=== PATIENT | female | born 1945 | race Caucasian/White ===

== ENCOUNTER → 2016-07-07 | Outpatient (CLI) | payer MEDICARE ==
[2016-07-07 08:51] LABS: ALT 35 U/L (9-52); AST 60 U/L (14-36); Alkaline Phosphatase 286 U/L (38-126); Anion Gap 7 mmol/L; Blood Urea Nitrogen 27 mg/dL (7-17); Calcium 8.6 mg/dL (8.4-10.2); Carbon Dioxide 28 mmol/L (22-30); Chloride 105 mmol/L (98-107); Non-African American GFR(MDRD) 50 (>60 ml/min/1.73 sqM); Sodium 140 mmol/L (137-145); Total Bilirubin 0.4 mg/dL (0.2-1.3); Total Protein 6.5 g/dL (6.3-8.2)
[2016-07-07 09:02] LABS: Glucose 42 mg/dL (74-99)
--- NOTE | 2016-07-07 15:02 | CT ---
EXAMINATION TYPE: CT chest w con DATE OF EXAM: 07/07/2016 10:23 AM COMPARISON: NONE HISTORY: Cough CT DLP: 195.10 mGycm, Automated exposure control for dose reduction was used. CONTRAST: Performed injected with 80 ml mL of Visipaque 320. TECHNIQUE: Axial images were obtained at 5 mm thick sections. Reconstructed images are reviewed on [employer] computer in the coronal plane. FINDINGS: No suspicious lung nodules or focal infiltrates are present. Subpleural fat collection appears to lie along the posterior lateral right lung base. Small pleural fluid collection could be considered with in the differential. No enlarged mediastinal or hilar adenopathy is evident. The ascending aorta diameter at the level o f the main pulmonary artery is 3.6 cm. The main pulmonary artery diameter at the bifurcation is 3.6 cm. Extensive vascular calcifications through the aorta and coronary arteries. Heart size is prominent. Limited CT sections are obtained through the upper abdomen. Abdomen is essentially unremarkable. IMPRESSIONS: 1. Cardiomegaly.
== END | disposition home or self-care (01) ==
LOC: RADCTMAIN 07:56
PROVIDERS: ATTEND Family Medicine
DX: I51.7 Cardiomegaly (principal); N18.1 Chronic kidney disease, stage 1; R05 Cough
CPT/HCPCS: 80053; 82306; 71260; 36415; Q9967